=== PATIENT | male | born 1970 | race Hispanic/Latino ===

== ENCOUNTER 2022-07-18 07:03 | Outpatient (CLI) | payer OTHER | END 2022-07-18 07:04 | disposition home or self-care (01) | LOC: BICULT 07:03 | PROVIDERS: ATTEND Nurse Practitioner Family | DX: K70.31 Alcoholic cirrhosis of liver with ascites (principal); R93.2 Abnormal findings on diagnostic imaging of liver and biliary tract; R16.1 Splenomegaly, not elsewhere classified | CPT/HCPCS: 76705 ==